=== PATIENT | female | born 1980 | race African-American/Black ===

== ENCOUNTER 2017-05-23 20:21 | Emergency (ER) | payer MEDICAID ==
[~2017-05-23 20:21] MED LIST: ARIP400S IM; DIVA500T69 PO
== END 2017-05-23 20:41 | disposition left against medical advice (07) ==
LOC: EMS 20:24
DX: F41.9 Anxiety disorder, unspecified (principal); F17.210 Nicotine dependence, cigarettes, uncomplicated; Z53.21 Procedure and treatment not carried out due to patient leaving prior to being seen by health care provider

== ENCOUNTER 2017-05-23 21:49 | Emergency (ER) | payer MEDICAID ==
[~2017-05-23] VITALS: Ht 188 cm; Wt 77.0 kg
[2017-05-23 21:52] VITALS: BP 127/68
== END 2017-05-23 22:39 | disposition left against medical advice (07) ==
LOC: EMS 21:50
DX: F41.9 Anxiety disorder, unspecified (principal); Z53.21 Procedure and treatment not carried out due to patient leaving prior to being seen by health care provider

== ENCOUNTER 2017-10-23 12:40 | Inpatient (IN) | payer MEDICAID ==
[2017-10-23 13:13] VITALS: BP 130/65
[2017-10-23] MEDS ORDERED: ACETAMINOPHEN 325 MG TABLET PO PRN (15:00)
[2017-10-23 16:30] VITALS: BP 119/63
[2017-10-23 17:17] VITALS: BP 119/63
[2017-10-23] MEDS ORDERED: INFLUENZA VIRUS VACCINE QVS 2017-18 (3YR+)/PF 60 MCG/0.5 ML SYRINGE IM ONE (17:30)
[2017-10-23] MEDS: LORazepam 2 MG TABLET PO PRN (19:24)
[2017-10-23] MEDS: ZOLPIDEM TARTRATE 10 MG TABLET PO PRN (21:03)
[2017-10-24] MEDS: LORazepam 2 MG TABLET PO PRN ×2 (07:02→17:38)
[2017-10-24] MEDS: HALOPERIDOL 5 MG TABLET PO PRN ×2 (07:02→17:38)
[2017-10-24] MEDS: QUEtiapine FUMARATE 200 MG TABLET PO SCH (20:36)
[2017-10-24] MEDS: DIVALPROEX SODIUM 500 MG ER TABLET PO SCH (20:36)
[2017-10-25] MEDS: LORazepam 2 MG TABLET PO PRN ×2 (13:55→17:57)
[2017-10-25] MEDS: HALOPERIDOL 5 MG TABLET PO PRN ×2 (13:55→17:57)
[2017-10-25] MEDS: DIVALPROEX SODIUM 500 MG ER TABLET PO SCH (20:40)
[2017-10-25] MEDS: QUEtiapine FUMARATE 200 MG TABLET PO SCH (20:40)
[2017-10-25] MEDS: ZOLPIDEM TARTRATE 10 MG TABLET PO PRN (20:41)
[2017-10-26 08:44] VITALS: BP 113/70
[2017-10-26] MEDS: HALOPERIDOL 5 MG TABLET PO PRN (10:36)
[2017-10-26] MEDS: LORazepam 2 MG TABLET PO PRN (10:36)
[2017-10-26] MEDS: DIVALPROEX SODIUM 500 MG ER TABLET PO SCH (20:17)
[2017-10-26] MEDS: ZOLPIDEM TARTRATE 10 MG TABLET PO PRN (20:17)
[2017-10-26] MEDS: QUEtiapine FUMARATE 200 MG TABLET PO SCH (20:17)
[2017-10-27 08:00] VITALS: BP 115/68
[2017-10-27] MEDS: QUEtiapine FUMARATE 200 MG TABLET PO SCH ×2 (08:24→20:12)
[2017-10-27 08:44] LABS: BASOPHILS % (AUTO) 0.9 % (0.0-2.0); EOSINOPHILS % (AUTO) 8.8 % (1.0-6.0); HEMATOCRIT 36.4 % (36-46); HEMOGLOBIN 11.9 g/dL (12.0-16.0); LYMPHOCYTES # (AUTO) 1.5 K/uL (1.0-4.8); LYMPHOCYTES % (AUTO) 41.8 % (22.0-44.0); MEAN CORPUSCULAR HEMOGLOBIN 27.2 pg (26.0-34.0); MEAN CORPUSCULAR HGB CONC 32.5 G/dL (31.0-37.0); MEAN CORPUSCULAR VOLUME 84 fL (80-100); MONOCYTES # (AUTO) 0.3 K/uL (0.1-1.0); MONOCYTES % (AUTO) 9.6 % (2.0-9.0); NEUTROPHILS # (AUTO) 1.4 K/uL (1.8-7.7); NEUTROPHILS % (AUTO) 38.9 % (40.0-70.0); PLATELET COUNT (AUTO) 259 K/uL (150-450); RED BLOOD CELL COUNT(AUTO) 4.35 MIL/uL (4.00-5.20); RED CELL DISTRIBUTION WIDTH 18.7 % (11.5-14.5); WHITE BLOOD COUNT (AUTO) 3.6 K/uL (4.5-11.0)
[2017-10-27 09:01] LABS: ALANINE AMINOTRANSFERASE 23 U/L (12-78); ALBUMIN 3.3 g/dL (3.4-5.0); ANION GAP 6 mmol/L (8-16); ASPARTATE AMINOTRANSFERASE 14 U/L (15-37); BILIRUBIN,TOTAL 0.4 mg/dL (0.1-1.0); CALCIUM, TOTAL 8.7 mg/dL (8.8-10.5); CARBON DIOXIDE 29 mmol/L (22-29); CHLORIDE 106 mmol/L (98-107); CHOL/HDL RATIO 2.1 (3.9-5.7); CREATININE 0.63 mg/dL (0.60-1.30); GLOMERULAR FILTR. RATE CALC > 60 mL/min (>60); POTASSIUM 4.1 mmol/L (3.5-5.1); SODIUM SERUM 141 mmol/L (136-145); THYROID STIMULATING HORMONE 0.66 uIU/mL (0.36-3.74); TOTAL PROTEIN, SERUM 6.5 g/dL (6.4-8.2); UREA NITROGEN, BLOOD 15 mg/dL (7-18)
[2017-10-27] MEDS: HALOPERIDOL 5 MG TABLET PO PRN (13:10)
[2017-10-27 16:21] VITALS: BP 121/80
[2017-10-27] MEDS: ZOLPIDEM TARTRATE 10 MG TABLET PO PRN (20:12)
[2017-10-27] MEDS: DIVALPROEX SODIUM 500 MG ER TABLET PO SCH (20:12)
[2017-10-28] MEDS: QUEtiapine FUMARATE 200 MG TABLET PO SCH ×2 (09:03→20:17)
[2017-10-28] MEDS: HALOPERIDOL 5 MG TABLET PO PRN ×2 (16:08→20:18)
[2017-10-28] MEDS: LORazepam 2 MG TABLET PO PRN ×2 (16:08→20:18)
[2017-10-28] MEDS: DIVALPROEX SODIUM 500 MG ER TABLET PO SCH (20:17)
[2017-10-28] MEDS: ZOLPIDEM TARTRATE 10 MG TABLET PO PRN (20:18)
[2017-10-29] MEDS: QUEtiapine FUMARATE 200 MG TABLET PO SCH ×2 (08:41→20:24)
[2017-10-29] MEDS: LORazepam 2 MG TABLET PO PRN ×2 (08:42→17:04)
[2017-10-29 09:03] VITALS: BP 137/85
[2017-10-29] MEDS: HALOPERIDOL 5 MG TABLET PO PRN (20:24)
[2017-10-29] MEDS: DIVALPROEX SODIUM 500 MG ER TABLET PO SCH (20:24)
[2017-10-29] MEDS: ZOLPIDEM TARTRATE 10 MG TABLET PO PRN (21:06)
[2017-10-30] VITALS (7 sets, daily range): BP systolic 93–110; BP diastolic 60–85
[2017-10-30] MEDS: QUEtiapine FUMARATE 200 MG TABLET PO SCH ×2 (08:44→21:15)
[2017-10-30] MEDS: LORazepam 2 MG TABLET PO PRN (09:01)
[2017-10-30] MEDS: HALOPERIDOL 5 MG TABLET PO PRN (16:57)
[2017-10-30] MEDS: DIVALPROEX SODIUM 500 MG ER TABLET PO SCH (21:15)
[2017-10-31 03:00] VITALS: BP 106/65
[2017-10-31 07:00] VITALS: BP 113/68
[2017-10-31] MEDS: QUEtiapine FUMARATE 300 MG TABLET PO SCH ×2 (09:00→20:21)
[2017-10-31 10:29] VITALS: BP 113/62
[2017-10-31 11:04] VITALS: BP 113/62
[2017-10-31 16:36] VITALS: BP 110/76
[2017-10-31] MEDS: DIVALPROEX SODIUM 500 MG ER TABLET PO SCH (20:20)
[2017-10-31] MEDS ORDERED: LORazepam 2 MG/ML VIAL ONE (20:33)
[2017-10-31] MEDS ORDERED: HALOPERIDOL LACTATE 5 MG/ML VIAL ONE (20:33)
[2017-10-31] MEDS ORDERED: DiphenhydrAMINE HCL 50 MG/ML VIAL ONE (20:33)
[2017-10-31] MEDS ORDERED: DiphenhydrAMINE HCL 50 MG/ML VIAL IM ONE (20:45)
[2017-10-31] MEDS ORDERED: HALOPERIDOL LACTATE 5 MG/ML VIAL IM ONE (20:45)
[2017-10-31] MEDS ORDERED: LORazepam 2 MG/ML VIAL IM ONE (20:45)
[2017-11-01 07:00] VITALS: BP 100/78
[2017-11-01 08:57] VITALS: BP 118/74
[2017-11-01] MEDS: HALOPERIDOL 5 MG TABLET PO PRN (09:06)
[2017-11-01] MEDS: QUEtiapine FUMARATE 300 MG TABLET PO SCH ×2 (09:06→20:22)
[2017-11-01] MEDS: LORazepam 2 MG TABLET PO PRN (09:06)
[2017-11-01] MEDS: DIVALPROEX SODIUM 500 MG ER TABLET PO SCH (20:22)
[2017-11-02] MEDS: QUEtiapine FUMARATE 300 MG TABLET PO SCH ×2 (09:10→20:53)
[2017-11-02] MEDS: DIVALPROEX SODIUM 500 MG ER TABLET PO SCH (20:53)
[2017-11-03 07:14] VITALS: BP 112/67
[2017-11-03] MEDS: QUEtiapine FUMARATE 300 MG TABLET PO SCH ×2 (09:16→20:25)
[2017-11-03] MEDS: DIVALPROEX SODIUM 500 MG ER TABLET PO SCH (20:25)
[2017-11-04 08:22] VITALS: BP 90/50
[2017-11-04 08:49] LABS: BASOPHILS % (AUTO) 0.6 % (0.0-2.0); EOSINOPHILS % (AUTO) 12.6 % (1.0-6.0); HEMATOCRIT 36.2 % (36-46); HEMOGLOBIN 11.8 g/dL (12.0-16.0); LYMPHOCYTES # (AUTO) 1.8 K/uL (1.0-4.8); LYMPHOCYTES % (AUTO) 45.6 % (22.0-44.0); MEAN CORPUSCULAR HEMOGLOBIN 27.3 pg (26.0-34.0); MEAN CORPUSCULAR HGB CONC 32.6 G/dL (31.0-37.0); MEAN CORPUSCULAR VOLUME 84 fL (80-100); MONOCYTES # (AUTO) 0.4 K/uL (0.1-1.0); MONOCYTES % (AUTO) 11.5 % (2.0-9.0); NEUTROPHILS # (AUTO) 1.2 K/uL (1.8-7.7); NEUTROPHILS % (AUTO) 29.7 % (40.0-70.0); PLATELET COUNT (AUTO) 161 K/uL (150-450); RED BLOOD CELL COUNT(AUTO) 4.33 MIL/uL (4.00-5.20); RED CELL DISTRIBUTION WIDTH 19.1 % (11.5-14.5); WHITE BLOOD COUNT (AUTO) 3.9 K/uL (4.5-11.0)
[2017-11-04] MEDS: QUEtiapine FUMARATE 300 MG TABLET PO SCH (09:20)
[2017-11-04] MEDS ORDERED: QUET300T2 PO (09:34)
== END 2017-11-04 11:37 | disposition home or self-care (01) | DRG 750 ==
LOC: B3A 15:06
DX: F25.0 Schizoaffective disorder, bipolar type (principal); G62.9 Polyneuropathy, unspecified; F17.200 Nicotine dependence, unspecified, uncomplicated; F12.10 Cannabis abuse, uncomplicated; Z59.0 Homelessness; Z91.5 Personal history of self-harm; Z88.0 Allergy status to penicillin; Z79.899 Other long term (current) drug therapy
CPT/HCPCS: 84439; 84443; 90471; J1200; J1630; J2060

== ENCOUNTER 2017-11-06 18:51 | Emergency (ER) | payer MEDICAID ==
[~2017-11-06 18:51] MED LIST changes: +QUET300T2 PO
== END 2017-11-06 19:08 | disposition left against medical advice (07) ==
LOC: EMS 18:53
DX: Z53.21 Procedure and treatment not carried out due to patient leaving prior to being seen by health care provider (principal)